=== PATIENT | male | born 1960 | race Caucasian/White ===

== ENCOUNTER → 2023-12-10 07:16 | Outpatient (REF) | payer BC, SELFPAY ==
[2023-12-10 08:31] LABS: HDL Cholesterol 71 mg/dl; LDL Cholesterol, Calculated 62 mg/dl; Total Cholesterol 146 mg/dl (50-199); Triglyceride 68 mg/dl (10-149); Very Low Density Lipoprotein 13 mg/dl (0-30)
== END ==
LOC: REG 07:16
PROVIDERS: ATTENDING PHYSICIAN Internal Medicine Cardiovascular Disease; FAMILY PHYSICIAN Family Medicine
DX: E78.2 Mixed hyperlipidemia (principal)
CPT/HCPCS: 36415; 80061

== ENCOUNTER 2024-06-19 00:35 | Emergency (ER) | payer BC, SELFPAY ==
[2024-06-19 00:38] VITALS: BP 176/82
[2024-06-19] MEDS: VALIUM 5 MG PO (02:11)
[2024-06-19] MEDS: DILAUDID 1 MG IM (02:11)
[2024-06-19 02:15] VITALS: BP 146/80
[2024-06-19 02:16] VITALS: BMI 28.6
--- NOTE | 2024-06-19 02:25 | ED.GENMED ---
History of Present Illness
General
Chief Complaint: Back Pain
Source: patient and spouse
Exam Limitations: none
Time Seen by Provider: 06/19/24 01:31
Nursing documentation reviewed up to this point in time: agreed with
History of Present Illness
History of Present Illness:
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
nausea vomiting, no history of kidney stones, has seen pain management had injection in his knee which was successful, he did have a trigger point junction his back with some temporary relief, spouse had trouble getting him up today due to pain, did
try some Motrin few hours ago with some relief
Past History
Past History
ED Past Medical History: CAD and Hypercholesterolemia
ED Past Surgical History: Cardiac
Social History
Tobacco: Non-smoker
Alcohol: None
Drug: None
Personal:
Living: with family
Employment: Employed
Family History
Family History: CAD
Phy Exam
Physical Exam
Physical Exam:
Physical Exam
General: 64-year-old male looks uncomfortable intermittently with spasm
Neck: No jaw
Heart: s1/s2 regular rate and rhythm, no murmur. equal radial pulses.
Lungs: no acute respiratory distress. clear bilaterally
Abdomen: Soft, no CVA tenderness positive reproducible spasm in the right lower thoracic paraspinal muscular
Neuro: alert and oriented. no focal neurological deficits
Skin: no rash
Psychiatric: well kept. interactive and cooperative
Extremities: no edema. no calf tenderness.
Course
Orders/Labs/Results
Orders:
Orders
06/19/24 01:47
Diazepam [Valium] 5 mg PO NOW STA
HYDROmorphone [Dilaudid] 1 mg IM NOW STA
Lumbar Spine, 2 or 3 View [CR Lumbar Spine 2 Or 3 Views] Urgent
Comment:
Reason For Exam: pain
06/19/24 02:20
Urinalysis Reflex To Culture Urgent
Date Specimen was Collected: 06/19/24
Time Specimen was Collected: 01:52
Vital Signs
Initial and Last Documented VS:
Initial Vital Signs
Temp Pulse Resp BP Pulse Ox
97.0 F 72 20 176/82 98
06/19/24 00:38 06/19/24 00:38 06/19/24 00:38 06/19/24 00:38 06/19/24 00:38
Last Documented Vital Signs
Temp Pulse Resp BP Pulse Ox
97.0 F 72 20 146/80 97
06/19/24 00:38 06/19/24 00:38 06/19/24 00:38 06/19/24 02:15 06/19/24 02:16
MDM/Problems Addressed
Differential Diagnosis Includes:
Radicular pain muscle spasm, doubt kidney stone,--- positional without hematuria
MDM/Problems Addressed:
Back pain
*Radiology
Radiology exam reviewed: preliminary read by ED provider (ZORAN weber)
*Pulse Oximetry
Patient hypoxic: no
*Critical Care Note
Total Time (30-74mins, 75-104mins- exclusive of procedures): Not Applicable
Update Note
Update Note:
Update x-ray noted, has seen pain management previously, will try to get him comfortable, I do not believe this is discitis or epidural abscess, doubt kidney stone
ED Attending Note
-
Portions of this chart may have been created with voice recognition software.� Occasional wrong word or��sound alike� substitutions may have occurred due to the inherent limitations of voice recognition software.
Discharge Plan
Departure
Patient Disposition: Home (Routine Discharge)
Date of Disposition: 06/19/24
Time of Disposition: 02:33
Patient with high blood pressure during this ER visit?: No
Covid-19: Not Applicable
Discharge Problem:
Back pain
Instructions: Low Back Pain (DC), Radiculopathy (DC)
Prescriptions:
New
oxycodone 5 mg tablet
5 mg PO Q6H PRN (Reason: Pain) Qty: 14 0RF
ibuprofen 600 mg tablet
600 mg PO Q6H PRN (Reason: Pain) Qty: 20 0RF
metaxalone 800 mg tablet
800 mg PO TID PRN (Reason: muscle pain) Qty: 14 0RF
No Action
dextroamphetamine sulfate 5 MG tablet
5 mg PO WEEKLY
simvastatin 10 MG tablet
10 mg PO QPM
aspirin [Adult Low Dose Aspirin] 81 MG tablet,delayed release (DR/EC)
81 mg PO QPM
tadalafil 5 MG tablet
5 mg PO WEEKLY
coenzyme [id number] E 1 CAP capsule
1 cap PO DAILY
fu-[id number]-mdbaple-ahzfco [Centrum Silver Men] 1 EACH tablet
1 ea PO DAILY
omeprazole magnesium [Prilosec OTC] 20 MG tablet,delayed release (DR/EC)
20 mg PO DAILY Qty: 30 6RF
Rx Instructions:
Please note increased dose- take DAILY
nitroglycerin 0.4 MG tablet, sublingual
0.4 mg sublingual PRN PRN (Reason: CHEST PAIN) Qty: 25 3RF
Referrals:
Miladis Qureshi DO [Family Provider] -
Interventions
Interventions:
*Risk Screen - Suicide Last Done: 06/19/24 00:38
*Neglect/Abuse Screening Last Done: 06/19/24 00:38
ED- Fall Risk Assessment Last Done: 06/19/24 02:18
*ED COVID-19 Vaccine History Last Done: 06/19/24 00:38
ED-Musculoskeletal Assessment Last Done: 06/19/24 02:17
Discharge Date and Time
Print Language: SERBIAN
[2024-06-19 02:27] LABS: Urine Albumin Negative (Neg - Trace); Urine Bilirubin Negative (Negative); Urine Character Clear (Clear); Urine Color Yellow; Urine Glucose Negative (Negative); Urine Ketone Negative (Negative); Urine Leukocyte Negative (Negative); Urine Nitrite Negative (Negative); Urine Occult Blood Negative (Negative); Urine Urobilinogen Negative (Neg - 1+)
== END 2024-06-19 03:04 | disposition home or self-care (01) ==
LOC: EMR 00:35
PROVIDERS: EMERGENCY PHYSICIAN Emergency Medicine; FAMILY PHYSICIAN Family Medicine
DX: M54.9 Dorsalgia, unspecified (principal); I25.10 Atherosclerotic heart disease of native coronary artery without angina pectoris; E78.00 Pure hypercholesterolemia, unspecified; Z82.49 Family history of ischemic heart disease and other diseases of the circulatory system
CPT/HCPCS: 99283; 96372; 72100; 81003

== ENCOUNTER → 2024-12-15 06:08 | Outpatient (REF) | payer BC, SELFPAY ==
[2024-12-15 12:29] LABS: HDL Cholesterol 60 mg/dl; LDL Cholesterol, Calculated 75 mg/dl; Total Cholesterol 147 mg/dl (50-199); Triglyceride 60 mg/dl (10-149); Very Low Density Lipoprotein 12 mg/dl (0-30)
== END ==
LOC: HWLAB 06:08
PROVIDERS: ATTENDING PHYSICIAN Internal Medicine Cardiovascular Disease; FAMILY PHYSICIAN Family Medicine
DX: E78.2 Mixed hyperlipidemia (principal)
CPT/HCPCS: 36415; 80061

== ENCOUNTER → 2025-03-11 11:43 | Outpatient (REF) | payer BC, SELFPAY ==
[2025-03-11 15:38] LABS: HDL Cholesterol 72 mg/dl; LDL Cholesterol, Calculated 98 mg/dl; Very Low Density Lipoprotein 8 mg/dl (0-30)
== END ==
LOC: HWLAB 11:43
PROVIDERS: ATTENDING PHYSICIAN Internal Medicine Cardiovascular Disease; FAMILY PHYSICIAN Family Medicine
DX: E78.2 Mixed hyperlipidemia (principal)
CPT/HCPCS: 36415; 80061

== ENCOUNTER 2025-06-10 20:51 | Observation (INO) | payer BC, SELFPAY ==
[2025-06-10] VITALS (12 sets, daily range): BP systolic 128–154; BP diastolic 65–85; PULSE 50–53; BMI 25.2; BMI 26.1
[2025-06-10 11:29] LABS: Hematocrit 40.1 % (39.0-52.0); Hemoglobin 13.5 g/dL (13.0-18.0); Mean Corp Hgb Conc. 33.7 g/dL (33.0-37.0); Mean Corpuscular Volume 99.5 fL (80.0-94.0); Nucleated Red Blood Cells % 0 % (-); Platelet Count 183 10^3/uL (130-400); Red Cell Dist. Width 12.4 % (11.5-14.5)
[2025-06-10 11:46] LABS: ALT (SGPT) 30 U/L (0-50); AST (SGOT) 31 U/L (17-59); Albumin 4.3 g/dl (3.5-5.0); Alkaline Phosphatase 51 U/L (38-126); Blood Urea Nitrogen 23 mg/dl (9-20); Calcium 9.3 mg/dl (8.4-10.2); Carbon Dioxide 31 mmol/L (22-30); Chloride 104 mmol/L (98-107); Glucose 66 mg/dl (70-99); Potassium 5.0 mmol/L (3.5-5.1); Sodium 136 mmol/L (135-145); Total Protein 7.0 g/dl (6.3-8.2); eGFR > 60.00
--- NOTE | 2025-06-10 12:04 | ED.GENMED ---
History of Present Illness
<EMANUEL Mclain Last Filed: 06/11/25 09:37>
General
Chief Complaint: Dizziness
Source: patient
Exam Limitations: none
Time Seen by Provider: 06/10/25 11:33
Nursing documentation reviewed up to this point in time: agreed with
History of Present Illness
History of Present Illness:
Patient is a 65-year-old male with history of CAD who presents to the emergency department for evaluation of intermittent dizziness. Patient states earlier this morning he was in the kitchen getting ready for work when he had acute onset dizziness.
Patient describes episodic sensation of spinning when his eyes were closed. There was no positional component to symptoms. He denies any associated headache or neck pain. No diplopia, ataxia, dysarthria, dysphagia. These episodes were not
associate any nausea or vomiting. Patient denies any chest pain or shortness of breath on my exam.
Of note�patient states he did sustain a very minor head injury over the weekend. He states that he was bending down to work on his house when he struck the front of his head on the siding. He does not report any loss of conscious at that time. He
was asymptomatic until this morning.
Past History
<Juana Barraza PA-C - Last Filed: 06/11/25 09:37>
Past History
ED Past Medical History: CAD and Hypercholesterolemia
ED Past Surgical History: Cardiac
Social History
Tobacco: Non-smoker
Alcohol: None
Drug: None
Personal:
Living: with family
Employment: Employed
Family History
Family History: CAD
Review of Systems
<EMANUEL Mclain Last Filed: 06/11/25 09:37>
Review of Systems
Allergies reviewed?: Yes
All Other Systems: ROS reviewed and negative except as documented in HPI and ROS
Phy Exam
<Juana Barraza PA-C - Last Filed: 06/11/25 09:37>
Physical Exam
Physical Exam:
Vitals: Patient's vital signs are stable. Afebrile
General: Patient is well appearing, no acute distress. Nontoxic appearing
Skin: Warm and dry, no rashes or lesions
Head: Normocephalic, atraumatic
Eyes: Sclera nonicteric. EOMs intact. No nystagmus.
Throat: Protecting airway
Neck: Normal ROM, no cervical spine tenderness, no meningismus
Cardiac: Regular rate and rhythm, no murmurs.
Pulm: Normal respiratory effort, no wheezes, rales, rhonchi heard on exam
.
Abdomen: No abdominal tenderness.
Extremities: No evidence of cyanosis or edema. Strength 5/5 in bilateral upper and lower extremities
Neuro: AAOx3. CN II-XII grossly intact. Normal finger-nose. No facial droop or asymmetry. No focal neurologic deficits.
Psychiatric: Normal affect.
Course
<Juana Barraza PA-C - Last Filed: 06/11/25 09:37>
Orders/Labs/Results
Orders:
Orders
06/10/25 10:14
Electrocardiogram (*1) Urgent
Reason for Study: Chest Pain
EKG- Treatment ONCE
06/10/25 11:15
Complete Blood Count/With Diff Urgent
Comprehensive Metabolic Panel Urgent
06/10/25 11:52
Orthostatic VS- Treatment ONCE
0.9% Sodium Chloride 1000 ml [Nss] 1,000 ml IV BOLUS
PT Consult [Pt Eval And Treat] Urgent
Treatment: Vestibular tx
Activity Level: As Tolerated
06/10/25 12:06
COVID-19 Antigen Urgent
Source: Nasal Swab
Influenza A+B Rapid Molecular Urgent
GÉNESIS Source: Nasal Swab
Specimen Description:
06/10/25 13:11
CT Head W/o Iv Contrast Urgent
Comment:
Reason For Exam: Dizziness, recent head trauma
06/10/25 14:19
Neck Angio w/wo Contrast CT [CT Neck Angio W/wo Iv Contrast] Urgent
Comment: discussed w/ attending
Reason For Exam: dizziness
06/10/25 18:29
Acetaminophen [Tylenol] 1,000 mg .ROUTE .STK-MED ONE
06/10/25 18:31
Acetaminophen [Tylenol] 1,000 mg PO NOW STA
06/10/25 20:27
Admit/Transfer Patient As Directed
Co-Sign Provider:
Level of Care: Observation services
Assign to:: Telemetry
Physician / Group: htay
Diagnosis: BPPV vs central origins like TIA
Reason for Telemetry: CVA/TIA
Date to Stop Telemetry: 06/13/25
Time to Stop Telemetry: 11:00
06/10/25 23:41
Case Management Consult ONCE
Case Management Consult: Discharge Planning
Comment: stroke/tia
DIETARY IP CONSULT Routine
Reason for Consult: stroke/TIA
NEUROLOGY CONSULT Urgent
Consulting Provider: Alex Jones
Was physician already notified: Yes
Reason for consult: BPPV vs. central origins /TIA
Blade Sharpener Urgent
Comprehensive Metabolic Panel Routine
Glycohemoglobin (HgbA1c) Routine
Compression Sleeves [Pneumatic Compression Sleeves] As Directed
Type: Knee high
Orthostatic Vital Signs As Directed
Orthostatic VS Frequency: Daily
Comment: times 2
Ot Eval And Treat Routine
Pt Eval And Treat Routine
Activity Level: With Assistance
Speech Therapy Eval & Treat Routine
DX Deep Vein Thrombosis Video Routine
06/11/25 00:00
Acetaminophen [Tylenol] 650 mg PO Q4HPRN PRN
06/11/25 08:00
Methylphenidate HCl [Ritalin] 5 mg PO DAILY
Rosuvastatin Calcium [Crestor] 20 mg PO DAILY
Valacyclovir HCl [Valtrex] 500 mg PO DAILY
06/11/25 08:53
Cardiovascular Evaluation IN AM
Complete Blood Count/No Diff IN AM
VerifyNow Aspirin IN AM
Pt on daily regimen OR been given initial dose of aspirin?: Yes
06/11/25 18:00
Aspirin Low Dose EC [Aspir Low (Enteric Coated)] 81 mg PO QPM
06/13/25 11:00
DC Protocol for Telemetry ONCE
Abnormal Lab Results
06/10/25
11:15
WBC 3.3 L 10^3/uL
(4.8-10.8)
RBC 4.03 L 10^6/uL
(4.70-6.10)
MCV 99.5 H fL
(80.0-94.0)
MCH 33.5 H pg
(27.0-31.0)
Absolute Lymphs (auto) 1.1 L 10^3/uL
(1.2-3.4)
Monocytes % 10.3 H %
(1.7-9.3)
Carbon Dioxide 31 H mmol/L
(22-30)
BUN 23 H mg/dl
(9-20)
Glucose 66 L mg/dl
(70-99)
06/10/25 11:15
06/10/25 11:15
Vital Signs
Initial and Last Documented VS:
Initial Vital Signs
Temp Pulse Resp BP Pulse Ox
97.9 F 54 20 139/65 99
06/10/25 10:12 06/10/25 10:12 06/10/25 10:12 06/10/25 10:12 06/10/25 10:12
Last Documented Vital Signs
Temp Pulse Resp BP Pulse Ox
98.4 F 61 17 149/71 99
06/11/25 15:09 06/11/25 15:09 06/11/25 15:09 06/11/25 15:09 06/11/25 15:09
<Mundo Dao MD - Last Filed: 06/11/25 19:18>
Orders/Labs/Results
Orders:
Orders
06/10/25 10:14
Electrocardiogram (*1) Urgent
Reason for Study: Chest Pain
EKG- Treatment ONCE
06/10/25 11:15
Complete Blood Count/With Diff Urgent
Comprehensive Metabolic Panel Urgent
06/10/25 11:52
Orthostatic VS- Treatment ONCE
0.9% Sodium Chloride 1000 ml [Nss] 1,000 ml IV BOLUS
PT Consult [Pt Eval And Treat] Urgent
Treatment: Vestibular tx
Activity Level: As Tolerated
06/10/25 12:06
COVID-19 Antigen Urgent
Source: Nasal Swab
Influenza A+B Rapid Molecular Urgent
GÉNESIS Source: Nasal Swab
Specimen Description:
06/10/25 13:11
CT Head W/o Iv Contrast Urgent
Comment:
Reason For Exam: Dizziness, recent head trauma
06/10/25 14:19
Neck Angio w/wo Contrast CT [CT Neck Angio W/wo Iv Contrast] Urgent
Comment: discussed w/ attending
Reason For Exam: dizziness
06/10/25 18:29
Acetaminophen [Tylenol] 1,000 mg .ROUTE .STK-MED ONE
06/10/25 18:31
Acetaminophen [Tylenol] 1,000 mg PO NOW STA
06/10/25 20:27
Admit/Transfer Patient As Directed
Co-Sign Provider:
Level of Care: Observation services
Assign to:: Telemetry
Physician / Group: htay
Diagnosis: BPPV vs central origins like TIA
Reason for Telemetry: CVA/TIA
Date to Stop Telemetry: 06/13/25
Time to Stop Telemetry: 11:00
06/10/25 23:41
Case Management Consult ONCE
Case Management Consult: Discharge Planning
Comment: stroke/tia
DIETARY IP CONSULT Routine
Reason for Consult: stroke/TIA
NEUROLOGY CONSULT Urgent
Consulting Provider: Alex Jones
Was physician already notified: Yes
Reason for consult: BPPV vs. central origins /TIA
Blade Sharpener Urgent
Comprehensive Metabolic Panel Routine
Glycohemoglobin (HgbA1c) Routine
Compression Sleeves [Pneumatic Compression Sleeves] As Directed
Type: Knee high
Orthostatic Vital Signs As Directed
Orthostatic VS Frequency: Daily
Comment: times 2
Ot Eval And Treat Routine
Pt Eval And Treat Routine
Activity Level: With Assistance
Speech Therapy Eval & Treat Routine
DX Deep Vein Thrombosis Video Routine
06/11/25 00:00
Acetaminophen [Tylenol] 650 mg PO Q4HPRN PRN
06/11/25 08:00
Methylphenidate HCl [Ritalin] 5 mg PO DAILY
Rosuvastatin Calcium [Crestor] 20 mg PO DAILY
Valacyclovir HCl [Valtrex] 500 mg PO DAILY
06/11/25 08:53
Cardiovascular Evaluation IN AM
Complete Blood Count/No Diff IN AM
VerifyNow Aspirin IN AM
Pt on daily regimen OR been given initial dose of aspirin?: Yes
06/11/25 18:00
Aspirin Low Dose EC [Aspir Low (Enteric Coated)] 81 mg PO QPM
06/13/25 11:00
DC Protocol for Telemetry ONCE
Abnormal Lab Results
06/10/25
11:15
WBC 3.3 L 10^3/uL
(4.8-10.8)
RBC 4.03 L 10^6/uL
(4.70-6.10)
MCV 99.5 H fL
(80.0-94.0)
MCH 33.5 H pg
(27.0-31.0)
Absolute Lymphs (auto) 1.1 L 10^3/uL
(1.2-3.4)
Monocytes % 10.3 H %
(1.7-9.3)
Carbon Dioxide 31 H mmol/L
(22-30)
BUN 23 H mg/dl
(9-20)
Glucose 66 L mg/dl
(70-99)
06/10/25 11:15
06/10/25 11:15
Vital Signs
Initial and Last Documented VS:
Initial Vital Signs
Temp Pulse Resp BP Pulse Ox
97.9 F 54 20 139/65 99
06/10/25 10:12 06/10/25 10:12 06/10/25 10:12 06/10/25 10:12 06/10/25 10:12
Last Documented Vital Signs
Temp Pulse Resp BP Pulse Ox
98.4 F 61 17 149/71 99
06/11/25 15:09 06/11/25 15:09 06/11/25 15:09 06/11/25 15:09 06/11/25 15:09
<Juana Barraza PA-C - Last Filed: 06/11/25 09:37>
MDM/Problems Addressed
Differential Diagnosis Includes:
Not limited to: Viral illness, orthostatic hypotension, BPPV, pulm otitis, M�ni�re's disease, TIA/CVA, etc.
MDM/Problems Addressed:
65-year-old male presenting with few episodes of dizziness this morning. Occurred initially while standing in the kitchen and described as a �spinning� exacerbated when his eyes were closed. Not clearly positional in nature. No associated nausea,
vomiting, headache. No other neurologic symptoms.
Vitals stable. On exam, patient appears well and in no distress. He is neurologically intact and asymptomatic at this time. No nystagmus. Symptoms not reproducible.
Impression is intermittent dizziness, which has resolved. Symptoms not clearly positional or typical of BPPV. While patient appears well without any neurodeficits, he does have vascular risk factors that would make a central cause a concern.
Will check labs, give IV fluids, and obtained PT vestibular evaluation. Will reassess after above.
Update: Labs fine. Physical therapy eval without clearly reproducible symptoms or peripheral etiology.
Patient remains asymptomatic. He did have a recent minor head trauma on Saturday, which I doubt is contributing, however in light of this along with vascular risk factors � a CT head and CTA of the neck was obtained.
CTA neck reveals significant stenosis in right vertebral artery. Along with vascular risk factors and presenting symptoms� feel this warrants admission for further work up to r/o central process. Patient accepted to hospitalist service in stable
condition.
Chronic conditions affecting care:
N/A
Acute Exacerbation and/or Progression of Chronic Illness:
N/A
<Juana Barraza PA-C - Last Filed: 06/11/25 09:37>
*Radiology
Radiology exam reviewed: radiology read reviewed
*Pulse Oximetry
SaO2: 99
Oxygen Mode of Delivery: Room air
Patient hypoxic: no
*EKG
Interpreted by ED Provider?: Yes
EKG Intrepretation Date: 06/10/25
Interpretation: abnormal
Comparison EKG: changes noted
Heart Rate: 54
Rate: bradycardiac
Rhythm: sinus
[place]: normal axis
Interval: normal QT interval
QRS Pattern: normal QRS
Ischemia: non-specific ST changes
*[place] Interpretation
Rate: bradycardiac
Interpretation: normal
Heart Rate: 58
Rhythm: sinus
*Critical Care Note
Total Time (30-74mins, 75-104mins- exclusive of procedures): Not Applicable
<Juana Barraza PA-C - Last Filed: 06/11/25 09:37>
Patient Management
Discussion with other providers: Hospitalist
ED Attending Note
<Juana Barraza PA-C - Last Filed: 06/11/25 09:37>
-
Portions of this chart may have been created with voice recognition software.� Occasional wrong word or��sound alike� substitutions may have occurred due to the inherent limitations of voice recognition software.
<Mundo Dao MD - Last Filed: 06/11/25 19:18>
ED Attending Note
Patient seen and examined by attending physician: Yes
I performed the substantive portion of visit, reviewed & personally made and approve the management plan that is documented in note by myself or OLIMPIA.: Yes
ED Attending Note:
65-year-old male with a history of cardiac disease presents with the onset of disequilibrium this morning. Started around 8 or 830. Persistent till his arrival here in the emergency department. Only reproduced when the physical therapist stood
him up and he had his eyes closed when he noted a spinning sensation. Denies current headache denies visual issues numbness tingling weakness or any other symptoms.
On exam patient is nontoxic in no distress. He has no unusual nystagmus. Extraocular muscles intact. Speech is normal. Cranial nerves II through XII intact. [id number] normal. No drift. [id number]-[id number] is normal. Lower extremity strength is
normal.
Regular rate and rhythm. No murmur. No carotid bruit. No respiratory distress.
Very likely this was a inner ear issue. Very low suspicion for TIA or central issue. Do not feel MRI would be diagnostic at this point nor would change advisor. I would like to confirm a CT angiography of vertebral and basilar artery to
evaluate for thrombus or dissection for completeness. If all negative discharged to follow-up
Discharge Plan
Departure
Patient Disposition: Admit
Date of Disposition: 06/10/25
Time of Disposition: 17:08
Presentation/result/management discussed w/ accepting MD/DO: Hospitalist
Discharge Problem:
Dizziness
Interventions
Interventions:
*Risk Screen - Suicide Last Done: 06/10/25 10:12
*General Assessment Last Done: 06/10/25 10:12
*Neglect/Abuse Screening Last Done: 06/10/25 10:12
*ED- Fall Risk Assessment Last Done: 06/10/25 23:36
*ED COVID-19 Vaccine History Last Done: 06/10/25 11:20
*ED Influenza Vaccine History Last Done: 06/10/25 11:20
*Nursing Disposition Last Done: 06/10/25 23:36
ED- Neurological Assessment Last Done: 06/10/25 11:20
ED- Cardiac Assessment Last Done: 06/10/25 23:36
ED Swallowing Screen Last Done: 06/10/25 17:30
[2025-06-10] MEDS: NSS 1000 IV (12:08)
[2025-06-10 13:04] LABS: COVID-19 Antigen Negative (Negative)
[2025-06-10] MEDS: TYLENOL 1000 MG PO (18:31)
--- NOTE | 2025-06-10 20:12 | HPS.HSE ---
Family Physician
-
Family Physician: Miladis Qureshi
Chief Complaint
-
intermittent dizziness.
History of Present Illness
HPI�
65M HX CAD seen at ER
- for evaluation of new onset of intermittent dizziness.
- started around 8 or 830.
- episodic sensation of spinning when his eyes were closed.
- Persistent
- reproducible when the PT stood him up, had his eyes closed then he noted a spinning sensation.
- report sustain a very minor head injury over the weekend. While he he was bending down to work on his house when he struck the front of his head on the siding. Denied loss of conscious at that time.
Medical History
Past Medical History
Past Medical History: Reports CAD and Hypercholesterolemia
Past Surgical History: Reports Cardiac
Social History
Tobacco: Non-smoker
Drug: None
Personal:
Family History
Family History: Not pertinent
Allergies / Home Medications
Allergies reflects when Allergies were last updated in [facility].
Home Medications with original date entered in [facility]
Allergy/Medication List:
Allergies
Allergy/AdvReac Type Severity Reaction Status Date / Time
No Known Allergies Allergy Verified 06/10/25 10:14
Home Medications
aspirin 81 mg tablet,delayed release (Adult Low Dose Aspirin) 81 mg PO QPM 10/13/18
methylphenidate HCl 5 mg tablet (Ritalin) 5 mg DAILY 06/10/25
rosuvastatin 20 mg tablet (Crestor) 20 mg PO DAILY 06/10/25
valacyclovir 500 mg tablet (Valtrex) 500 mg PO DAILY 06/10/25
Review of Systems
-
Constitutional: Reports No Symptoms
EENT: Reports No Symptoms
Respiratory: Reports No Symptoms
Cardiac: Reports No Symptoms
Abdomen/GI: Reports No Symptoms
: Reports No Symptoms
Musculoskeletal: Reports No Symptoms
Skin: Reports No Symptoms
Neurological: Reports Dizzy
Endocrine: Reports No Symptoms
Hematologic/Lymphatic: Reports No Symptoms
Psych: Reports No Symptoms
Physical Exam
Vital Signs
Vital Signs
Temp Pulse Resp BP Pulse Ox
97.9 F 56 22 154/85 99
06/10/25 10:12 06/10/25 18:00 06/10/25 18:00 06/10/25 18:00 06/10/25 18:00
Physical Exam
General: No Apparent Distress
HEENT: NormoCephalic and Moist mucous membranes
Respiratory: Clear
Cardiac: S1/S2 and Regular Rhythm; No Murmur or Rub
GI: Soft, Non Tender, Non Distended and Normal Bowel Sounds; No Organomegaly
Rectal: Deferred by Provider
Genito-urinary: Deferred by me
Musculoskeletal: No Edema
Skin: No Rash
Neuro: AO x 3, No Motor Deficits and Nonfocal/grossly intact; No Slurred Speech, Facial Droop or Tremors
Psych: Calm
Laboratory Results
-
06/10/25 11:15
06/10/25 11:15
Laboratory Results
Total Bilirubin 0.6 mg/dl (0.2-1.3) 06/10/25 11:15
AST 31 U/L (17-59) 06/10/25 11:15
ALT 30 U/L (0-50) 06/10/25 11:15
Alkaline Phosphatase 51 U/L (38-126) 06/10/25 11:15
Data Reviewed
-
CT Scan: Report Reviewed by me
Medical Tests (Nuc Med, Echo, EKG etc): Report Reviewed by me
Impression/Plan
-
Vital Signs
Temp Pulse Resp BP Pulse Ox
97.9 F 56 22 154/85 99
06/10/25 10:12 06/10/25 18:00 06/10/25 18:00 06/10/25 18:00 06/10/25 18:00
Laboratory Tests
10/07/18 06/10/25
10:32 11:15
WBC 4.3 L 3.3 L
Hgb 13.9 13.5
Plt Count 211 183
Potassium 5.0
Carbon Dioxide 31 H
BUN 23 H
Creatinine 0.9
eGFR > 60.00
Glucose 66 L
EKG
SINUS BRADYCARDIA WITH OCCASIONAL PREMATURE VENTRICULAR COMPLEXES
NONSPECIFIC ST AND T WAVE ABNORMALITY
ABNORMAL ECG
WHEN COMPARED WITH ECG OF 01-Oct-2018 19:31,
PREMATURE VENTRICULAR COMPLEXES ARE NOW PRESENT
Confirmed by LEONEL GILMAN MD ([id number]) on 06/10/2025 10:54:[address] Head W/o Iv Contrast:
- No acute intracranial abnormality noted.
CT Neck Angio W/wo Iv Contrast
1. 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
2. Moderate calcific atherosclerotic plaque in both proximal internal carotid arteries causing less than 50% diameter stenosis.
3. Moderate to severe discogenic degenerative disease at C5/C6 with a disc-osteophyte complex causing mild spinal cord compression, mild central canal stenosis, and severe bilateral neural foraminal narrowing.
4. 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
NO PRIOR hospitalist admission:
ASSESSMENT & PLAN
New onset of acute intermittent episodes and reproducible of dizziness when standing with eye closed
DD: BPPV vs central origins ( TIA)
- c/w ASA and Statin
- Ortho VSS
- fall precaution
- PT/OT
- Brain MRI in AM
- Neuro consult
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
- case - hospitalist dw Neurologist - Neuro will evaluate for further suggestion
DVT Px: SCD
Full code
OBS TLM
[2025-06-11 00:48] LABS: ALT (SGPT) 25 U/L (0-50); AST (SGOT) 24 U/L (17-59); Albumin 3.7 g/dl (3.5-5.0); Alkaline Phosphatase 66 U/L (38-126); Blood Urea Nitrogen 20 mg/dl (9-20); Calcium 8.6 mg/dl (8.4-10.2); Carbon Dioxide 27 mmol/L (22-30); Chloride 104 mmol/L (98-107); Estimated Creatinine Clearance 57 ml/min; Glucose 105 mg/dl (70-99); Potassium 4.2 mmol/L (3.5-5.1); Sodium 132 mmol/L (135-145); Total Protein 6.1 g/dl (6.3-8.2); eGFR > 60.00
--- NOTE | 2025-06-11 01:23 | PTCARENOTE ---
Pt arrived to unit via stretcher. Pt walked from stretcher to bed. Pt oriented to room. Pt AAOx3, VSS. Pt's at the bedside. Call gallardo within reach, plan of care on going.
[2025-06-11 03:13] VITALS: BP 142/79
[2025-06-11 07:41] VITALS: BP 127/70
[2025-06-11] MEDS: VALTREX 500 MG PO (08:30)
[2025-06-11] MEDS: CRESTOR 20 MG PO (08:30)
[2025-06-11 09:11] LABS: Hematocrit 45.0 % (39.0-52.0); Hemoglobin 15.1 g/dL (13.0-18.0); Mean Corp Hgb Conc. 33.6 g/dL (33.0-37.0); Mean Corpuscular Volume 99.6 fL (80.0-94.0); Platelet Count 207 10^3/uL (130-400); Red Cell Dist. Width 12.5 % (11.5-14.5)
[2025-06-11 09:37] LABS: HDL Cholesterol 86 mg/dl; LDL Cholesterol, Calculated 34 mg/dl; Very Low Density Lipoprotein 8 mg/dl (0-30)
--- NOTE | 2025-06-11 09:39 | CON.NEURO4 ---
Addendum entered and electronically signed by Alex Jones MD 06/11/25 18:28:
Studies reviewed.
I have personally examined the patient. I reviewed and agree with the ASSOCIATE PROFESSOR OF [employer]IOSTATIST[employer]'s Note.
My addenda:
Awake, alert, interactive. No acute distress.
Speech intact.
Follows 2-step requests w/o difficulty. No tremor.
Extra-ocular movements grossly intact.
Facial movements full and symmetric. Hearing intact to normal conversational volume.
Normal UE movements bilaterally.
Neck: full ROM.
Chest: no dyspnea
Heart: no JVD
Ext: (-) Clubbing, (-) Cyanosis, (-) Edema
IMPRESSIONS/RECOMMENDATIONS:
Abrupt onset of dizziness
Most most likely due to a peripheral etiology such as BPPV which is subsequently resolved
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
Yearly reevaluation of the patient's stenosis may be of benefit to ensure critical stenosis is not taking place
Patient should have an outpatient evaluation by a vascular neurosurgeon
Continue aspirin 81 mg daily
Continue rosuvastatin 20 mg daily based on the patient's LDL less than 70
D/W patient / family
All questions answered.
Will continue to follow as outpatient.
Original Note:
Documented by User: Lakshmi Gomez NP 06/11/25 14:01
Consultation - Neurology 4
-
CONSULTING PHYSICIAN: Alex Jones MD
REFERRING PHYSICIAN: Hospitalists/Dr. Maharaj
DICTATED BY: TREY Castaneda
DATE/TIME OF REQUEST: 06/10/25
DATE/TIME OF CONSULTATION: 06/11/25
Reason for Consultation: Dizziness
History of Present Illness:
This is a 65-year-old right-handed male who has presented to the hospital on 06/10/25 with report of dizziness. Patient reports that about two weeks ago he had a brief episode of light-headedness while walking up the stairs. Five days ago on 06/06/25
he was doing yard work hit his head on the edge of the house while bending over. He denies any loss of consciousness. Yesterday morning (06/10/25), he reports waking up in his usual state. He got dressed and then went downstairs to the kitchen when
suddenly he developed a sensation like his was on a boat. This sensation became worse when he closed his eyes, it turned into a spinning sensation. His brought him to the ER for evaluation and he notes that shortly after arrival his dizziness
resolved but he reports for the remainder of the afternoon he had a 'light-headedness' sensation and a 'stomach butterflies' sensation. Four hours after dizziness onset, he reports developing a bifrontal 4/10 headache that resolved completely with
Tylenol. CT head and CTA head/neck were obtained on arrival and are negative for any acute abnormalities but are suggestive of a R vertebral 70% stenosis. Today (06/11/25), patient reports feeling at his baseline. He denies any headache, dizziness,
nausea/vomiting, vision changes, speech/swallow difficultly, numbness, and weakness. He is taking aspirin 81mg daily for a history of cardiac stents.
Past Medical History: HLD, CAD, BPH
Surgical History: Cardiac stents x2
Family History: Reviewed and noncontributory.
Social History: Occasional alcohol. Denies tobacco and illicit drug use.
Allergies: No known allergies.
Home Medications: See below.
Review of Symptoms:
Patient denies any fever, headache, chest pain, shortness of breath, GI or symptoms.
�Per the HPI.�All systems are reviewed negative except above.
Physical Exam:
The patient is afebrile, abdomen is nondistended, breathing is unlabored, skin is warm and dry, no edema.
NIH Stroke Scale:
I performed the NIH stroke scale on the patient on 06/11/25 at 0945. The patient scored 0 points on the NIH stroke scale assessment, which were assigned as follows: See below.
Neurologic Examination:
The patient is awake, alert and oriented x 3. He is able to follow commands and answer questions appropriately. There is no aphasia or dysarthria. On cranial nerve assessment, pupils are 3 mm bilateral, round and reactive to light and
accommodation. Visual herr are full. Extraocular movements are intact. Facial sensations are intact and bilaterally symmetrical, there is no facial asymmetry. Hearing is intact bilaterally to finger rub and normal conversation volume. Tongue
palate and uvula are midline. Sternocleidomastoid strengths are full bilaterally. Motor strengths are 5/5 bilateral upper and lower extremities on medical research [place] scale. There is no drift or involuntary movement noted. Deep tendon reflexes
are 2+ bilateral upper and lower extremities and Babinski is absent bilaterally. There was no extinction noted on double simultaneous stimulation. Coordination is intact by finger to nose bilaterally.
Lab Results: See below.
Neuro Imaging:
1. CT head 06/11/25: No acute intracranial abnormality noted.
2. CTA head/neck 06/11/25: Severe stenosis (greater than 70% diameter) at the origin of the right vertebral artery. 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
the right vertebral artery. Moderate calcific atherosclerotic plaque in both proximal internal carotid arteries causing less than 50% diameter stenosis. Moderate to severe discogenic degenerative disease at C5/C6 with a disc-osteophyte complex
causing mild spinal cord compression, mild central canal stenosis, and severe bilateral neural foraminal narrowing. 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
Differentials for the patient's presentation include:
1. Transient dizziness; uncertain etiology, likely a peripheral vertigo, BPPV. Cannot entirely exclude a small ischemic stroke in the setting of R vertebral 70% stenosis.
Patient has the following risk factors for their symptoms: R vertebral 70% stenosis, HLD
IV Tenecteplase/IAT candidacy: Not a candidate due to NIHSS 0.
Recommendations:
-Continue aspirin 81mg daily.
-Aspirin efficacy testing pending.
-MRI brain noncontrast pending.
-PT/OT evaluations.
-LDL goal <70. LDL is 34. Continue home rosuvastatin 20mg daily as LDL is at goal.
-Goal normoglycemia, hbA1c is 5.7.
-NIHSS and neurological checks per unit guidelines.
-Provide patient/family with a stroke education packet.
-Follow-up with [facility] as an outpatient for opinion on R vertebral stenosis.
-DVT prophylaxis.
Discussed patient care with: Dr. Jones, the patient, patient's spouse
Vital Signs and Labs
-
Vital Signs and Labs:
Vital Signs
Temp Pulse Resp BP Pulse Ox
98.0 F 52 17 127/70 97
06/11/25 07:41 06/11/25 07:41 06/11/25 07:41 06/11/25 07:41 06/11/25 07:41
Lab Results
06/11/25 08:53
06/11/25 00:12
Sodium 132 mmol/L (135-145) L 06/11/25 00:12
Potassium 4.2 mmol/L (3.5-5.1) 06/11/25 00:12
BUN 20 mg/dl (9-20) 06/11/25 00:12
Glucose 105 mg/dl (70-99) H 06/11/25 00:12
Calcium 8.6 mg/dl (8.4-10.2) 06/11/25 00:12
LDL Cholesterol, Calc 34 mg/dl 06/11/25 08:53
Medications
-
Active Medications
Generic Name Dose Route Start Last Admin
Trade Name Freq PRN Reason Stop Dose Admin
Acetaminophen 650 mg 06/11/25 00:00
Acetaminophen 325 Mg Tablet PO 07/09/25 00:00
Q4HPRN PRN
ZAIDI, mild pain, or temp >100.4F
Aspirin 81 mg 06/11/25 18:00
Aspirin 81 Mg (Enteric Coated) Tablet PO 07/09/25 17:59
QPM TADEO
Methylphenidate HCl 5 mg 06/11/25 08:00 06/11/25 08:33
Methylphenidate 5 Mg Tablet PO 06/25/25 07:59 Not Given
DAILY TADEO
Rosuvastatin Calcium 20 mg 06/11/25 08:00 06/11/25 08:30
Rosuvastatin (Crestor) 20 Mg Tablet PO 07/09/25 07:59 20 mg
DAILY TADEO Administration
Valacyclovir HCl 500 mg 06/11/25 08:00 06/11/25 08:30
Valacyclovir Hcl 500 Mg Tablet PO 06/21/25 07:59 500 mg
DAILY TADEO Administration
Home Medications
�Medication �Instructions �Recorded
aspirin 81 mg tablet,delayed 81 mg PO QPM Blood Clot 10/13/18
release (Adult Low Dose Aspirin) Prevention/Tx
methylphenidate HCl 5 mg tablet 5 mg DAILY ADD 06/10/25
(Ritalin)
rosuvastatin 20 mg tablet (Crestor) 20 mg PO DAILY High Cholesterol 06/10/25
valacyclovir 500 mg tablet 500 mg PO DAILY ANTIVIRAL 06/10/25
(Valtrex)
NIH Stroke Score
Subsequent NIH Scale
Date of Subsequent NIH Scale: 06/11/25
Time of Subsequent NIH Scale: 09:45
NIH Stroke Score
Level of Consciousness: 0 - Alert
LOC Questions: 0-Answers both correctly
LOC Commands: 0-Performs both correctly
Best Horizontal Gaze: 0-Normal
Visual Herr: 0=Normal, no visual loss
Facial Palsy: 0=Normal, symmetrical
Motor - Right Arm: 0=No drift 10 seconds
Motor - Left Arm: 0=No drift 10 seconds
Motor - Right Le-No drift 5 seconds
Motor - Left Le-No drift 5 seconds
Limb Ataxia: 0-Absent
Sensation: 0-Normal
Best Language: 0-No aphasia
Dysarthria: 0-Normal
Extinction and Inattention: 0-No abnormality
NIH Total Score:: 0
Modified Jeffery (mRS) Score
Modified Jeffery Scale (mRS): No symptoms
Score: 0
Alteplase Contraindication
Inclusion and Exclusion criteria reviewed: Yes
IAT Contraindications: NIHSS < 6 and Imaging doesn't show large vessel occlusion as cause of stroke

Documented by User: Alex Jones MD 06/11/25 18:26
NIH Stroke Score
NIH Stroke Score
NIH Total Score:: 0
Modified [place] (mRS) Score
Score: 0
[2025-06-11 10:12] LABS: VerifyNow Aspirin 554 ARU
[2025-06-11 10:25] LABS: Glycohemoglobin (HgbA1c) 5.7 % (4.0-5.9)
[2025-06-11 11:17] VITALS: BP 113/66
--- NOTE | 2025-06-11 14:27 | W.PN.HOSP.TC ---
Addendum entered and electronically signed by Du Hardin MD 06/11/25 15:52:
[id number]
Original Note:
Today's Communication/Plan
-
asa, statin
f/u neuro, pcp, neurovascular outpt
f/u bmp in 5-7 days
Assessment / Plan
Assessment / Plan
Physical Exam
General: No Apparent Distress
HEENT: NormoCephalic and Moist mucous membranes
Respiratory: Clear
Cardiac: S1/S2 and Regular Rhythm; No Murmur or Rub
GI: Soft, Non Tender, Non Distended and Normal Bowel Sounds; No Organomegaly
Rectal: Deferred by Provider
Genito-urinary: Deferred by me
Musculoskeletal: No Edema
Skin: No Rash
Neuro: AO x 3, No Motor Deficits and Nonfocal/grossly intact; No Slurred Speech, Facial Droop or Tremors
Psych: Calm
New onset of acute intermittent episodes and reproducible of dizziness when standing with eye closed
DD:uncertain etiology, likely a peripheral vertigo, BPPV
- c/w ASA and Statin
-LDL goal <70. LDL is 34. Continue home rosuvastatin 20mg daily as LDL is at goal.
-HbA1c is 5.7
-Aspirin efficacy - 554; >/= 550 ARU - No evidence of aspirin-induced platelet dysfunction.
- Ortho VSS negative
- fall precaution
- PT/OT
- Brain MRI - unremarkable
- Neuro consulted, f/u outpt
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
[facility] as an outpatient for opinion on R vertebral stenosis.
#Hyponatremia
-mild
monitor outpt
DVT Px: SCD
Full code
OBS TLM
More than 30 minutes spent in discharge including
Final examination of the patient
Summarizing hospital stay
Instructions for continuing care to all relevant caregivers
Preparation of discharge records, prescriptions, and referral forms
Total time spent (in minutes): 37
Anticipated Discharge: Today
Subjective/Interval History
-
Date of Service: June 11, 2025
Feels better, MRI unremarkable for acute pathology
Objective Data
-
Labs:
Laboratory Results
06/11/25
08:53
WBC 4.1 L
Hgb 15.1
Hct 45.0
Plt Count 207
Vital Signs:
Vital Signs
Temp Pulse Resp BP Pulse Ox
98.3 F 55 17 113/66 98
06/11/25 11:17 06/11/25 11:17 06/11/25 11:17 06/11/25 11:17 06/11/25 11:17
Review of Systems
-
History Source: Patient
All other systems: Not reviewed unless documented
--- NOTE | 2025-06-11 14:40 | W.DS.TRANS ---
DC Summary - [employer]
-
Discharge Instructions:
Discharge Diagnosis/Procedures Transient dizziness; uncertain etiology, likely
a peripheral vertigo, BPPV.
Diet Low Cholesterol,Low Fat
Activity As tolerated
Blood Work bmp in 3-5 days with pcp - Monitor Sodium (Was
132 today)
Instructions:
Stand-Alone Forms:
Changes to Home Medications: No
Discharge Medications:
DC Medications w/original date entered in [employer]
aspirin 81 mg tablet,delayed release (Adult Low Dose Aspirin) 81 mg PO QPM Blood Clot Prevention/Tx 10/13/18
methylphenidate HCl 5 mg tablet (Ritalin) 5 mg DAILY ADD 06/10/25
rosuvastatin 20 mg tablet (Crestor) 20 mg PO DAILY High Cholesterol 06/10/25
valacyclovir 500 mg tablet (Valtrex) 500 mg PO DAILY ANTIVIRAL 06/10/25
Home Medication Changes
na
Pending Results: No
--- NOTE | 2025-06-11 15:01 | CM ---
care center manager reviewed patient's chart and patient was admitted under OBS, OBS letter provided to patient, patient lives alone in a 2 story home, is independent with adl's and ambulation, no dme, patient drives, home today no needs.
PCP: Mercy Qureshi
Pharmacy: [facility] in [place]
Plan; Home today.
[2025-06-11 15:09] VITALS: BP 149/71
== END 2025-06-11 17:15 | disposition home or self-care (01) ==
LOC: 4 WEST ACU 20:51
PROVIDERS: Physician Assistant; Student in an Organized Health Care Education/Training Program; ADMITTING PHYSICIAN Internal Medicine; ATTENDING PHYSICIAN Internal Medicine; CONSULT PHYSICIAN Psychiatry & Neurology Neurology; EMERGENCY PHYSICIAN Emergency Medicine; FAMILY PHYSICIAN Family Medicine
DX: R42 Dizziness and giddiness (principal); R07.9 Chest pain, unspecified; R06.02 Shortness of breath; I49.3 Ventricular premature depolarization; R00.1 Bradycardia, unspecified; I25.10 Atherosclerotic heart disease of native coronary artery without angina pectoris; I65.01 Occlusion and stenosis of right vertebral artery; E78.00 Pure hypercholesterolemia, unspecified; I70.90 Unspecified atherosclerosis; M25.78 Osteophyte, vertebrae; G99.2 Myelopathy in diseases classified elsewhere; M48.02 Spinal stenosis, cervical region; G93.5 Compression of brain; E87.1 Hypo-osmolality and hyponatremia; S09.90XA Unspecified injury of head, initial encounter; W22.09XA Striking against other stationary object, initial encounter; Y93.H9 Activity, other involving exterior property and land maintenance, building and construction; Y92.008 Other place in unspecified non-institutional (private) residence as the place of occurrence of the external cause; Z95.5 Presence of coronary angioplasty implant and graft; Z79.624 Long term (current) use of inhibitors of nucleotide synthesis; Z79.899 Other long term (current) drug therapy; Z79.82 Long term (current) use of aspirin; Z82.49 Family history of ischemic heart disease and other diseases of the circulatory system; Z11.52 Encounter for screening for COVID-19; Z60.2 Problems related to living alone
CPT/HCPCS: 70450; 70498; 70551; 80053; 80061; 83036; 85025; 85027; 85576; 87502; 87811; 93005; 96360; 97165; 99285; G0378; Q9967